=== PATIENT | female | born 1970 | race Caucasian/White ===

== ENCOUNTER 2017-03-15 12:43 | Emergency (ER) | payer BC | END 2017-03-15 14:21 | disposition left against medical advice (07) | LOC: UCCORT 12:43 | DX: R05 Cough (principal); Z53.21 Procedure and treatment not carried out due to patient leaving prior to being seen by health care provider ==

== ENCOUNTER 2017-03-15 17:22 | Emergency (ER) | payer BC ==
[2017-03-15 18:23] VITALS: BP 132/83
--- NOTE | 2017-03-15 18:31 | UC ---
Respiratory Complaint HPI - HPI Summary HPI Summary: 46 yo F with cough and ST x 5 days. Cannot sleep due to cough. Dry cough. No definite wheezing. Hx pneumonia years ago. Nonsmoker. 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 Had a flu shot. No definite fever, but has been taking Advil. Just started Mucinex last pm with some relief. Brings up only small amount sputum, yellow. No DVT or PE hx and no risk factors, and no calf pain or swelling. 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 Negative: Fever, Chills, Wheezing, Hemoptysis, Calf Pain, Calf Swelling - Risk Factors Pulmonary Embolism Risk Factors: Negative Cardiac Risk Factors: Negative Pseudomonas Risk Factors: Negative Tuberculosis Risk Factors: Negative - Allergies/Home Medications Allergies/Adverse Reactions: Allergies Allergy/AdvReac Type Severity Reaction Status Date / Time Cephalexin [From Keflex] Allergy Rash And Verified 03/15/17 18:20 Itching Penicillins Allergy Rash And Verified 03/15/17 18:20 Itching Tetracycline Allergy Swelling Verified 03/15/17 18:20 Of Face,Lips,& Throat Home Medications: Home Medications Ibuprofen TAB* [Advil TAB*] 400 mg PO Q6H PRN 03/15/17 [History Confirmed ] PMH/Surg Hx/FS Hx/Imm Hx Endocrine History Of: Denies: Diabetes Cardiovascular History Of: Denies: Hypertension, Pacemaker/ICD Respiratory History Of: Reports: Bronchitis - USUALLY GETS ABOUT ONCE A YEAR, Pneumonia GI/ History Of: Denies: Renal Disease Psychological History Of: Reports: Anxiety - ON MED, Depression - ON MED Cancer History Of: Denies: Breast Cancer - Surgical History Surgical History: Yes Surgery Procedure, Year, and Place: [facility] [place] [facility] [place] BILAT FOOT SURGERY CHILD. URETHRA SURGERY AGE 4 AND 5. L [facility] 2013. uterine ablation. discectomy-L5, S1 - Family History Known Family History: Positive: Hypertension - Social History Occupation: Employed Full-time Lives: With Family Alcohol Use: Rare Alcohol Amount: 1/WEEK-NONE RECENTLY Substance Use Type: None Smoking Status (MU): Never Smoked Tobacco - Immunization History Most Recent Influenza Vaccination: pt stated she was getting it every year Most Recent Tetanus Shot: within 10 years Most Recent Pneumonia Vaccination: none Review of Systems Constitutional: Fatigue Skin: Rash - right forearm ENT: Sore Throat Respiratory: Cough Cardiovascular: Negative Gastrointestinal: Negative Musculoskeletal: Negative Neurological: Negative Psychological: Negative All Other Systems Reviewed And Are Negative: Yes Physical Exam Triage Information Reviewed: Yes Appearance: No Pain Distress, Well-Nourished, Ill-Appearing Vital Signs: Initial Vital Signs Temp 99.3 F 03/15/17 18:13 Pulse 99 03/15/17 18:13 Resp 16 03/15/17 18:13 BP 132/83 03/15/17 18:13 Pulse Ox 96 03/15/17 18:13 Vital Signs Reviewed: Yes Eyes: Positive: Conjunctiva Clear ENT: Positive: Hearing grossly normal, Pharyngeal erythema - mady right, TMs normal, Muffled/hoarse voice. Negative: Tonsillar swelling, Tonsillar exudate Neck: Positive: Supple, Nontender, No Lymphadenopathy Respiratory: Positive: No respiratory distress, No accessory muscle use, Decreased breath sounds, Other: - cannot take a breath without coughing Cardiovascular: Positive: RRR, No Murmur, Pulses Normal, Brisk Capillary Refill Musculoskeletal: Positive: Strength Intact, ROM Intact, Other: - no calf tenderness Neurological: Positive: Alert, Muscle Tone Normal Psychological Exam: Normal Skin: Positive: rashes - macular papular erythematous rash on right ventral forearm UC Diagnostic Evaluation - Laboratory O2 Sat by Pulse Oximetry: 96 Respiratory Course/Dx - Course Course Of Treatment: rapid strep neg. albuterol neb and norco given - Differential Dx/Diagnosis Differential Diagnosis/HQI/PQRI: Asthma, Bronchitis, Laryngitis, Lower Resp Infection, Sinusitis Provider Diagnoses: acute bronchitis Discharge - Discharge Plan Condition: Stable Disposition: HOME Prescriptions: Benzonatate CAP* [Tessalon 100 MG CAP*] 100 mg PO TID PRN #20 cap PRN Reason: Cough guaiFENesin/CODIEN 100MG-10MG* [Robitussin AC 100Mg-10Mg*] 5 ml PO Q4H PRN #100 ml MDD 20ml PRN Reason: Cough predniSONE TAB* [Deltasone TAB*] 40 mg PO DAILY #10 tab Patient Education Materials: Acute Bronchitis (ED) Referrals: Hitesh Miller DO [Primary Care Provider] - 2 Days (if no improvement, and also for recheck of your blood pressure which was mildly elevated today at 132/83. ) Additional Instructions: You were given an albuterol neb at 7:30pm tonight, and also a norco tab which has acetaminophen (Tylenol) and hydrocodone in it at 7pm. The hydrocodone ( narcotic) helps to suppress a cough. Your next dose of norco can be at 11pm tonight if needed. We have also dispensed an inhaler and your next dose of that may also be at 11pm if needed for cough. Please note [facility] is open from 9am to 5pm tomorrow, for picking up your prescriptions.
[2017-03-15] MEDS ORDERED: Albuterol 2.5 MG/3 ML NEB.SOL* (0.083%) INH ONE (18:57)
[2017-03-15] MEDS ORDERED: HYDROcodone/ACETAMIN 5-325 MG* 1 TAB PO ONE ×2 (18:57→19:24)
[2017-03-15] MEDS ORDERED: Albuterol HFA INHALER* 8 gm MDI INH ONE (19:25)
== END 2017-03-15 20:06 | disposition home or self-care (01) ==
LOC: UCCORT 17:22
DX: J20.9 Acute bronchitis, unspecified (principal)
CPT/HCPCS: 87651; 99213; A9270-GY; G0463

== ENCOUNTER 2018-01-03 08:39 | Emergency (ER) | payer BC ==
[2018-01-03 09:07] VITALS: BP 117/77
[2018-01-03] MEDS ORDERED: guaiFENesin/CODIEN 100MG-10MG* 5 ML UDC PO ONE (09:15)
[2018-01-03] MEDS ORDERED: Albuterol 2.5 MG/3 ML NEB.SOL* (0.083%) INH ONE (09:17)
--- NOTE | 2018-01-03 09:18 | UC ---
Respiratory Complaint HPI - HPI Summary HPI Summary: Patient has had increasing sore thraot and cough that does not let up, denies fever, does get short of breath. - History of Current Complaint Chief Complaint: UCRespiratory Stated Complaint: COUGH Time Seen by Provider: 01/03/18 09:04 Hx Obtained From: Patient Hx Last Menstrual Period: unknown, uterine ablation ?: No Onset/Duration: Sudden Onset, Lasting Days Timing: Constant Severity Initially: Moderate Severity Currently: Moderate Pain Intensity: 5 Character: Cough: Nonproductive Aggravating Factors: Deep Breaths, Recumbent Position Alleviating Factors: Nothing Associated Signs And Symptoms: Positive: Dyspnea, Chills, Wheezing, URI, Hoarseness - Allergies/Home Medications Allergies/Adverse Reactions: Allergies Allergy/AdvReac Type Severity Reaction Status Date / Time cephalexin [From Keflex] Allergy Rash And Verified 01/03/18 09:03 Itching Penicillins Allergy Rash And Verified 01/03/18 09:03 Itching tetracycline Allergy Swelling Verified 01/03/18 09:03 Of Face,Lips,& Throat Home Medications: Home Medications Bupropion XL* [Wellbutrin XL *] 150 mg PO DAILY 01/03/18 [History Confirmed ] Citalopram TAB* [CeleXA TAB*] 20 mg PO DAILY 01/03/18 [History Confirmed ] PMH/Surg Hx/FS Hx/Imm Hx Previously Healthy: Yes - Surgical History Surgical History: Yes Surgery Procedure, Year, and Place: [facility] 2003 [facility] [place]. BILAT FOOT SURGERY CHILD. URETHRA SURGERY AGE 4 AND 5. L [facility] SCOPING [facility]2012. uterine ablation. discectomy-L5, S1 - Family History Known Family History: Positive: Unknown, Hypertension - Social History Alcohol Use: Rare Alcohol Amount: 1/WEEK-NONE RECENTLY Substance Use Type: None Smoking Status (MU): Never Smoked Tobacco - Immunization History Most Recent Influenza Vaccination: pt stated she was getting it every year Most Recent Tetanus Shot: within 10 years Most Recent Pneumonia Vaccination: none Review of Systems Constitutional: Chills, Fatigue Skin: Negative Eyes: Negative ENT: Sore Throat, Ear Ache Respiratory: Shortness Of Breath, Cough Cardiovascular: Negative Gastrointestinal: Negative Genitourinary: Negative Motor: Negative Neurovascular: Negative Musculoskeletal: Negative Neurological: Headache Psychological: Negative Is Patient Immunocompromised?: No All Other Systems Reviewed And Are Negative: Yes Physical Exam Triage Information Reviewed: Yes Appearance: Well-Nourished, Ill-Appearing, Pain Distress Vital Signs: Initial Vital Signs Temp 98.4 F 01/03/18 09:03 Pulse 85 01/03/18 09:03 Resp 16 01/03/18 09:03 BP 117/77 01/03/18 09:03 Pulse Ox 100 01/03/18 09:03 Vital Signs Reviewed: Yes Eye Exam: Normal ENT: Positive: Pharyngeal erythema, Nasal congestion, Nasal drainage, TM bulging - bilaterally, Tonsillar exudate, Hoarse voice, Sinus tenderness Dental Exam: Normal Neck exam: Normal Neck: Positive: Supple, Nontender, No Lymphadenopathy Respiratory: Positive: Chest non-tender, Respiratory distress - milf, Rhonchi, Wheezing, Inspiration Cardiovascular Exam: Normal Cardiovascular: Positive: RRR, No Murmur, Pulses Normal Abdominal Exam: Normal Abdomen Description: Positive: Nontender, No Organomegaly, Soft Bowel Sounds: Positive: Present Musculoskeletal Exam: Normal Musculoskeletal: Positive: Strength Intact, ROM Intact, No Edema Neurological Exam: Normal Psychological Exam: Normal Skin Exam: Normal UC Diagnostic Evaluation - Laboratory O2 Sat by Pulse Oximetry: 100 Respiratory Course/Dx - Course Course Of Treatment: hx obtained, exam performed ,meds reviewed, neb treatment given, cough medicine given, rapid strep obtained and is negative - Differential Dx/Diagnosis Differential Diagnosis/HQI/PQRI: Asthma, Bronchitis, Laryngitis, Sinusitis Provider Diagnoses: bronchitis. sinusitis Discharge - Discharge Plan Condition: Stable Disposition: HOME Patient Education Materials: Acute Bronchitis (ED) Referrals: Hitesh Miller DO [Primary Care Provider] - Additional Instructions: 1. take the medication as prescribed. 2. Increase fluid intake and get plenty of rest 3. Humidification of the home with help with the cough. 4. Follow up if not improving.
== END 2018-01-03 09:59 | disposition home or self-care (01) ==
LOC: UCCORT 08:39
DX: Z88.1 Allergy status to other antibiotic agents (principal); Z88.0 Allergy status to penicillin; J40 Bronchitis, not specified as acute or chronic; J32.9 Chronic sinusitis, unspecified
CPT/HCPCS: 87651; 99212; A9270-GY; G0463

== ENCOUNTER 2018-05-15 13:46 | Emergency (ER) | payer BC ==
[2018-05-15 14:17] VITALS: BP 139/92
--- NOTE | 2018-05-15 14:58 | UC ---
Hand/Wrist HPI - HPI Summary HPI Summary: Around 11:00 this morning the patient swung a golf club when she experienced a sudden pain and pop in her right wrist. She notes that it hurts to bend or straighten the wrist. She has no associated numbness tingling or weakness to the hand. She denies any other injuries offers no other complaints. - History Of Current Complaint Chief Complaint: UCUpperExtremity Stated Complaint: RIGHT WRIST INJURY Time Seen by Provider: 05/15/18 14:42 Hx Last Menstrual Period: unknown, uterine ablation Onset/Duration: Sudden Onset Pain Intensity: 5 Aggravating Factor(s): Movement Alleviating Factor(s): Rest Associated Signs And Symptoms: Negative: Swelling, Weakness, Numbness/Tingling - Allergies/Home Medications Allergies/Adverse Reactions: Allergies Allergy/AdvReac Type Severity Reaction Status Date / Time cephalexin [From Keflex] Allergy Rash And Verified 05/15/18 14:11 Itching Penicillins Allergy Rash And Verified 05/15/18 14:11 Itching tetracycline Allergy Swelling Verified 05/15/18 14:11 Of Face,Lips,& Throat Home Medications: Home Medications Cyclobenzaprine TAB* [Flexeril 10 MG TAB*] 10 mg PO BEDTIME PRN 05/15/18 [ History Confirmed 05/15/18] PMH/Surg Hx/FS Hx/Imm Hx - Additional Past Medical History Additional PMH: disc dz with LLE nerve damage Psychological History: Anxiety, Depression - Surgical History Surgical History: Yes Surgery Procedure, Year, and Place: [facility] 2003 [facility] [place]. BILAT FOOT SURGERY CHILD. URETHRA SURGERY AGE 4 AND 5. L HIP SCOPING [facility]2012. uterine ablation. discectomy. discectomy-L5, S1 - Family History Known Family History: Positive: Unknown, Hypertension - Social History Occupation: Employed Full-time Lives: With Family Alcohol Use: Rare Alcohol Amount: 1/WEEK-NONE RECENTLY Substance Use Type: None Smoking Status (MU): Never Smoked Tobacco - Immunization History Most Recent Influenza Vaccination: pt stated she was getting it every year Most Recent Tetanus Shot: within 10 years Most Recent Pneumonia Vaccination: none Vaccination Up to Date: Yes Review of Systems Constitutional: Negative Skin: Negative Eyes: Negative ENT: Negative Respiratory: Negative Cardiovascular: Negative Gastrointestinal: Negative Genitourinary: Negative Motor: Negative Neurovascular: Negative Musculoskeletal: Other: - R wrist pain Neurological: Negative Psychological: Negative Is Patient Immunocompromised?: No All Other Systems Reviewed And Are Negative: Yes Physical Exam Triage Information Reviewed: Yes Appearance: Well-Appearing Vital Signs: Initial Vital Signs Temp 99.6 F 05/15/18 14:12 Pulse 89 05/15/18 14:12 Resp 14 05/15/18 14:12 BP 139/92 05/15/18 14:12 Pulse Ox 99 05/15/18 14:12 Vital Signs Reviewed: Yes Eyes: Positive: Conjunctiva Clear ENT: Positive: Normal ENT inspection Neck: Positive: Supple, Nontender, No Lymphadenopathy Respiratory: Positive: Lungs clear, Normal breath sounds Cardiovascular: Positive: RRR, No Murmur Abdomen Description: Positive: Nontender, No Organomegaly, Soft Bowel Sounds: Positive: Present Musculoskeletal: Positive: Other: - RUE: Shoulder and elbow are atraumatic. Right wrist when compared to left shows no gross deformity swelling or discoloration. The dorsal wrist is tender to palpation; however, there is no tenderness over the snuffbox. Patient complains of worsening pain over the dorsal wrist with passive and active flexion extension of the wrist. Fingers have full sensorivascular motor function. Neurological: Positive: Alert Psychological: Positive: Age Appropriate Behavior Skin Exam: Normal Diagnostics - Radiology No standard instances Radiology Interpretation Completed By: Radiologist - MPRESSION: NEGATIVE EXAMINATION R WRIST Hand/Wrist Course/Dx - Course Course Of Treatment: no fx or dislocation. hx and PE suggest a ligamnet or strain to dorsal wrist. given degree of pain with any motion, will splint and refer to orthopedics. - Differential Dx/Diagnosis Provider Diagnoses: Acute dorsal wrist pain. Sprain vs strain. Discharge - Sign-Out/Discharge Documenting (check all that apply): Patient Departure - Discharge Plan Condition: Stable Disposition: HOME Patient Education Materials: Wrist Injury (ED) Referrals: Hitesh Miller DO [Primary Care Provider] - If Needed Toshia Chan MD [Medical Doctor] - As Soon As Possible Additional Instructions: SPLINT AT ALL TIMES UNTIL CLEARED. - Billing Disposition and Condition Condition: STABLE Disposition: Home
--- NOTE | 2018-05-15 15:18 | RAD ---
INDICATION: Right wrist pain COMPARISON: None TECHNIQUE: AP, lateral, and oblique views were obtained. FINDINGS: The bony structures, joint spaces, and soft tissues are normal for age. IMPRESSION: NEGATIVE EXAMINATION.
== END 2018-05-15 15:29 | disposition home or self-care (01) ==
LOC: UCCORT 13:46
DX: M25.531 Pain in right wrist (principal); X50.0XXA Overexertion from strenuous movement or load, initial encounter; Y93.9 Activity, unspecified; Y92.9 Unspecified place or not applicable; Z88.0 Allergy status to penicillin; Z88.1 Allergy status to other antibiotic agents
CPT/HCPCS: 99212; G0463